=== PATIENT | female | born 1990 | race Caucasian/White ===

== ENCOUNTER 2017-12-02 23:53 | Emergency (ER) | payer BC ==
[2017-12-03] MEDS ORDERED: SODIUM CHLORIDE 0.9% 1,000 ML IV ONE (00:27)
[2017-12-03] MEDS ORDERED: METOCLOPRAMIDE 5 MG/ML 2 ML VIAL IVP STA (00:27)
[2017-12-03] MEDS ORDERED: SODIUM CHLORIDE 0.9% 500 ML IV ONE (00:27)
[2017-12-03] MEDS ORDERED: diphenhydrAMINE 50 MG/ML 1 ML VIAL IVP STA (00:27)
--- NOTE | 2017-12-03 00:30 | ED ---
Nausea/Vomiting/Diarrhea HPI - General Chief complaint: Nausea/Vomiting/Diarrhea Stated complaint: 7wks Preg-Vomiting Time Seen by Provider: 12/03/17 00:18 Source: patient Mode of arrival: wheelchair Limitations: no limitations - History of Present Illness Initial comments: 27-year-old female patient presents to the emergency department today for evaluation of vomiting and lower abdominal cramping. Patient states she believes she is approximately 7 weeks . She is . History of polycystic ovarian syndrome. She states that she did have her initial intake appointment with her RESOURCE ANALYST but has not had any ultrasound or physician evaluation. She states that for the last 4 days she has been vomiting consistently throughout the day. States that she has only been able to keep down small amounts of toast and crackers. States that she is able to drink at times. She states she has had one to 2 episodes of loose stools for the last 4 days as well. She denies any hematemesis, hematochezia, or melena. She denies any fevers or chills with this. Denies any recent travel. Patient denies any recent rash, shortness breath, chest pain, back pain, numbness, tingling, dizziness, weakness, hematuria, dysuria, urinary urgency, urinary frequency, headache, visual changes, or any other complaints. - Related Data Home Medications Medication Instructions Recorded Confirmed Dextroamphetamine/Amphetamine 30 mg PO BID 08/03/17 08/03/17 [Adderall] buPROPion HCL [Wellbutrin SR] 150 mg PO BID 08/03/17 08/03/17 Minocycline [Minocin] 50 mg PO BID 08/09/17 08/09/17 Allergies Allergy/AdvReac Type Severity Reaction Status Date / Time amoxicillin Allergy Anaphylaxis Verified 12/03/17 00:00 Penicillins Allergy Anaphylaxis Verified 12/03/17 00:00 Review of Systems ROS Statement: Those systems with pertinent positive or pertinent negative responses have been documented in the HPI. ROS Other: All systems not noted in ROS Statement are negative. Past Medical History Past Medical History: No Reported History History of Any Multi-Drug Resistant Organisms: None Reported Additional Past Surgical History / Comment(s): labiaplasty Past Psychological History: No Psychological Hx Reported Smoking Status: Never smoker Past Alcohol Use History: None Reported Past Drug Use History: Marijuana General Exam Limitations: no limitations General appearance: alert, in no apparent distress, other (His is a well- developed, well-nourished adult female patient in no acute distress. Vital signs upon presentation are temperature 97.6F, pulse 78, respirations 18, blood pressure 122/75, pulse ox 100% on room air.) Eye exam: Present: normal appearance, PERRL, EOMI. Absent: scleral icterus, conjunctival injection, periorbital swelling ENT exam: Present: normal exam, normal oropharynx, mucous membranes moist Respiratory exam: Present: normal lung sounds bilaterally. Absent: respiratory distress, wheezes, rales, rhonchi, stridor Cardiovascular Exam: Present: regular rate, normal rhythm, normal heart sounds. Absent: systolic murmur, diastolic murmur, rubs, gallop, clicks GI/Abdominal exam: Present: soft, tenderness (Tenderness over the suprapubic region and over the left lower quadrant.), normal bowel sounds. Absent: distended, guarding, rebound, rigid Back exam: Present: normal inspection. Absent: CVA tenderness (R), CVA tenderness (L) Neurological exam: Present: alert, oriented X3, CN II-XII intact Psychiatric exam: Present: normal affect, normal mood Skin exam: Present: warm, dry, intact, normal color. Absent: rash Course Vital Signs 12/02/17 23:55 Temperature 97.6 F Pulse Rate 78 Respiratory 18 Rate Blood Pressure 122/75 O2 Sat by Pulse 100 Oximetry Medical Decision Making - Medical Decision Making 27-year-old female patient presented to the emergency department today for evaluation of nausea and vomiting for the last 4 days, as well as lower abdominal cramping. Physical examination did reveal some suprapubic and left lower quadrant abdominal tenderness. Labs reviewed and were unremarkable, hCG was 56,000. Urinalysis was negative for any acute process. Ultrasound was obtained and did show a single viable intrauterine measuring 6 weeks 3 days with a heart rate of 167. I did give her Reglan and Benadryl as well as IV fluids here in the department. Patient is feeling better. We'll discharge her home at this time to follow-up with her RESOURCE ANALYST for further evaluation. She is instructed to return here immediately for any new, worsening, or concerning symptoms. She verbalizes understanding and agrees with this plan. - Lab Data Result diagrams: 12/03/17 00:46 12/03/17 00:46 Lab Results 12/03/17 12/03/17 12/03/17 Range/Units 00:43 00:46 00:46 WBC 12.2 H (3.8-10.6) k/uL RBC 4.11 (3.80-5.40) m/uL Hgb 12.2 (11.4-16.0) gm/dL Hct 37.9 (34.0-46.0) % MCV 92.2 (80.0-100.0) fL MCH 29.6 (25.0-35.0) pg MCHC 32.1 (31.0-37.0) g/dL RDW 12.1 (11.5-15.5) % Plt Count 260 (150-450) k/uL Neutrophils % 64 % Lymphocytes % 27 % Monocytes % 4 % Eosinophils % 2 % Basophils % 1 % Neutrophils # 7.8 H (1.3-7.7) k/uL Lymphocytes # 3.3 (1.0-4.8) k/uL Monocytes # 0.5 (0-1.0) k/uL Eosinophils # 0.3 (0-0.7) k/uL Basophils # 0.1 (0-0.2) k/uL Sodium 137 (137-145) mmol/L Potassium 3.9 (3.5-5.1) mmol/L Chloride 100 (98-107) mmol/L Carbon Dioxide 26 (22-30) mmol/L Anion Gap 11 mmol/L BUN 10 (7-17) mg/dL Creatinine 0.50 L (0.52-1.04) mg/dL Est GFR (MDRD) Af Amer >60 (>60 ml/min/1.73 sqM) Est GFR (MDRD) Non-Af >60 (>60 ml/min/1.73 sqM) Glucose 93 (74-99) mg/dL Calcium 9.7 (8.4-10.2) mg/dL Total Bilirubin 0.2 (0.2-1.3) mg/dL AST 18 (14-36) U/L ALT 24 (9-52) U/L Alkaline Phosphatase 62 (38-126) U/L Total Protein 6.8 (6.3-8.2) g/dL Albumin 4.0 (3.5-5.0) g/dL Amylase 56 (30-110) U/L Lipase 47 (23-300) U/L HCG, Quant 58231.7 mIU/mL Urine Color Colorless Urine Appearance Clear (Clear) Urine pH 6.5 (5.0-8.0) Ur Specific [place] 1.001 (1.001-1.035) Urine Protein Negative (Negative) Urine Glucose (UA) Negative (Negative) Urine Ketones Negative (Negative) Urine Blood Negative (Negative) Urine Nitrite Negative (Negative) Urine Bilirubin Negative (Negative) Urine Urobilinogen <2.0 (<2.0) mg/dL Ur Leukocyte Esterase Negative (Negative) - Radiology Data Radiology results: report reviewed, image reviewed ultrasound was obtained, report was reviewed in its entirety. Impression by Dr. Barboza shows viable intrauterine measuring 6 weeks 3 days. Heart rate is 167. He sees no complicating process. Disposition Clinical Impression: Nausea & vomiting Disposition: HOME SELF-CARE Condition: Good Instructions: Acute Nausea and Vomiting (ED) Additional Instructions: Eat small frequent meals. Follow-up with your OBGYN for further evaluation. Return here immediately for any new, worsening, or concerning symptoms. Referrals: None,Stated [Primary Care Provider] - 1-2 days Time of Disposition: 02:08
[2017-12-03 00:56] LABS: Basophils # (A) 0.1 k/uL (0-0.2); Basophils % (A) 1 %; Eosinophils # (A) 0.3 k/uL (0-0.7); Eosinophils % (A) 2 %; HCT 37.9 % (34.0-46.0); HGB 12.2 gm/dL (11.4-16.0); Lymphocytes # (A) 3.3 k/uL (1.0-4.8); Lymphocytes % (A) 27 %; MCH 29.6 pg (25.0-35.0); MCHC 32.1 g/dL (31.0-37.0); MCV 92.2 fL (80.0-100.0); Mean Platelet Volume 8.3; Monocytes # (A) 0.5 k/uL (0-1.0); Monocytes % (A) 4 %; Neutrophils # (A) 7.8 k/uL (1.3-7.7); Neutrophils % (A) 64 %; Platelet Count 260 k/uL (150-450); RBC 4.11 m/uL (3.80-5.40); RDW 12.1 % (11.5-15.5); WBC 12.2 k/uL (3.8-10.6)
[2017-12-03 00:57] LABS: Appearance,Urine Clear (Clear); Bilirubin,Urine Negative (Negative); Blood,Urine Negative (Negative); Color,Urine Colorless; Glucose,Urine (UA) Negative (Negative); Ketones,Urine Negative (Negative); Leukocyte Esterase,Urine Negative (Negative); Nitrite,Urine Negative (Negative); PH, Urine 6.5 (5.0-8.0); Protein,Urine Negative (Negative); Specific Gravity,Urine 1.001 (1.001-1.035); Urobilinogen,Urine <2.0 mg/dL (<2.0)
[2017-12-03 01:08] LABS: ALT 24 U/L (9-52); AST 18 U/L (14-36); Alkaline Phosphatase 62 U/L (38-126); Amylase 56 U/L (30-110); Anion Gap 11 mmol/L; Blood Urea Nitrogen 10 mg/dL (7-17); Calcium 9.7 mg/dL (8.4-10.2); Carbon Dioxide 26 mmol/L (22-30); Chloride 100 mmol/L (98-107); Glucose 93 mg/dL (74-99); Lipase 47 U/L (23-300); Potassium 3.9 mmol/L (3.5-5.1); Sodium 137 mmol/L (137-145); Total Bilirubin 0.2 mg/dL (0.2-1.3); Total Protein 6.8 g/dL (6.3-8.2)
--- NOTE | 2017-12-03 01:37 | US ---
EXAMINATION TYPE: US OB <= 14 wk fetus DATE OF EXAM: 12/03/2017 COMPARISON: NONE CLINICAL HISTORY: Pain. Pain and nausea. EXAM PERFORMED: Transvaginal (TV) and Transabdominal (TA) EXAM MEASUREMENTS: GESTATIONAL AGE / DATING Physician Established: Not yet established Dates by LMP: (7 weeks/4 days) EDC: 07/18/2018 Dates by First Scan: No previous this is first scan Dates by Current Scan for: (6 weeks/3 days) EDC: 07/26/2018 MATERNAL ANATOMY Uterus: 9.0 x 4.9 x 6.4 cm Right Ovary: 2.6 x 1.7 x 2.9 cm Left Ovary: 3.5 x 1.1 x 3.3 cm Post CDS / Adnexa: wnl Presence of free fluid: no Presence of corpus luteal cyst: yes Presence of subchorionic bleed: no GESTATION / SURVEY CRL: 0.6 cm (6 weeks/3 days) Yolk Sac (normal less than 6mm): 2mm Heart Rate: 167 bpm Rhythm: Normal IUP: Viable IUP Date of LMP: 10/11/2017 Beta HcG (if available): Not available at this time Viable IUP 6w3d GUICHO 07/26/2018 HR 167 BPM IMPRESSION: The ultrasound gestational age is 6 weeks 3 days. I see no complicating process.
[2017-12-03 01:51] LABS: HCG,Quantitative Serum 59858.7 mIU/mL
[2017-12-03 02:21] VITALS: BP 112/56; PULSE 70; RESP 16; TEMP 98.8
== END 2017-12-03 02:21 | disposition home or self-care (01) ==
LOC: EC 23:53
DX: O21.0 Mild hyperemesis gravidarum (principal); O99.89 Other specified diseases and conditions complicating pregnancy, childbirth and the puerperium; R19.7 Diarrhea, unspecified; Z3A.01 Less than 8 weeks gestation of pregnancy; Z79.899 Other long term (current) drug therapy; Z88.0 Allergy status to penicillin
CPT/HCPCS: 36415; 80053; 82150; 83690; 85025; 81003; 84702; 76801; 99284; 96374; 96375; 96361 ×2; J1200; J2765; 76817

== ENCOUNTER → 2017-12-27 | Outpatient (CLI) | payer BC ==
--- NOTE | 2017-12-27 11:40 | US ---
EXAMINATION TYPE: US OB <=14 wks transvag DATE OF EXAM: 12/27/2017 COMPARISON: 12/06/2017 CLINICAL HISTORY: O76 Absent Heart Tones. EXAM PERFORMED: Transvaginal (TV) and Transabdominal (TA) Transvaginal added to better visualize ovaries and yolk sac. EXAM MEASUREMENTS: GESTATIONAL AGE / DATING Physician Established: (9 weeks/6 days) EDC: 07/26/18 Dates by LMP: (11 weeks 0 days) 07/18/18 Dates by First Scan: (9 weeks/6 days) EDC: 07/26/18 Dates by Current Scan for: (10 weeks/5 days) EDC: 07/20/18 MATERNAL ANATOMY Uterus: 9.2 x x 6.6 x 10. 0cm Right Ovary: obscured by bowel gas and enlarging uterus Left Ovary: obscured by bowel gas and enlarging uterus Post CDS / Adnexa: wnl Presence of free fluid: no GESTATION / SURVEY CRL: 3.8 (10 weeks/5 days) Yolk Sac (normal less than 6mm): 3mm Heart Rate: 160 bpm Rhythm: Normal IUP: Live IUP Date of LMP: 10/11/17 Beta HcG (if available): Not available at this time IMPRESSION: Single live intrauterine with heart rate of 160 bpm and calculated sonographic age of 10 we eks and 5 days with estimated date of delivery of 07/20/2018, overall concordant with menstrual age.
== END | disposition home or self-care (01) ==
LOC: RADUSWWP 10:05
PROVIDERS: ATTEND Obstetrics & Gynecology Obstetrics
DX: O76 Abnormality in fetal heart rate and rhythm complicating labor and delivery (principal); Z3A.10 10 weeks gestation of pregnancy
CPT/HCPCS: 76801; 76817

== ENCOUNTER 2018-04-09 21:56 | Outpatient (CLI) | payer BC ==
[2018-04-10 01:06] VITALS: BP 126/78; PULSE 70; RESP 18; TEMP 98.2
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
== END 2018-04-10 01:03 | disposition home or self-care (01) ==
LOC: FBPOP 21:56
PROVIDERS: ATTEND Obstetrics & Gynecology
DX: O99.89 Other specified diseases and conditions complicating pregnancy, childbirth and the puerperium (principal); G89.11 Acute pain due to trauma; Z3A.24 24 weeks gestation of pregnancy
CPT/HCPCS: 99213

== ENCOUNTER 2018-07-19 08:28 | Inpatient (IN) | payer BC ==
[2018-07-19 10:16] LABS: Amorphous Sediment,Urine Few /hpf; Appearance,Urine Cloudy (Clear); Bilirubin,Urine Negative (Negative); Blood,Urine Negative (Negative); Calcium Oxalate Crystals,Urine Few /hpf; Color,Urine Yellow; Glucose,Urine (UA) Negative (Negative); Ketones,Urine Trace (Negative); Leukocyte Esterase,Urine Negative (Negative); Mucus,Urine Rare /hpf; Nitrite,Urine Negative (Negative); PH, Urine 6.5 (5.0-8.0); Protein,Urine Trace (Negative); Specific Gravity,Urine 1.015 (1.001-1.035); Squamous Epithelial Cell,Urine 1 /hpf (0-4); Urobilinogen,Urine <2.0 mg/dL (<2.0); WBC,Urine <1 /hpf (0-5)
[2018-07-19 10:30] LABS: ALT 26 U/L (9-52); AST 53 U/L (14-36); Blood Urea Nitrogen 8 mg/dL (7-17); LDH 779 U/L (313-618); Uric Acid 5.6 mg/dL (3.7-7.4)
[2018-07-19 10:31] LABS: Basophils # (A) 0.1 k/uL (0-0.2); Basophils % (A) 0 %; Eosinophils # (A) 0.2 k/uL (0-0.7); Eosinophils % (A) 1 %; HGB 11.6 gm/dL (11.4-16.0); Lymphocytes % (A) 18 %; MCH 28.9 pg (25.0-35.0); MCHC 33.2 g/dL (31.0-37.0); MCV 87.2 fL (80.0-100.0); Monocytes # (A) 0.8 k/uL (0-1.0); Monocytes % (A) 5 %; Neutrophils # (A) 12.6 k/uL (1.3-7.7); Neutrophils % (A) 75 %; Platelet Count 262 k/uL (150-450); RBC 4.01 m/uL (3.80-5.40); RDW 14.5 % (11.5-15.5); WBC 16.8 k/uL (3.8-10.6)
[2018-07-19] MEDS ORDERED: LIDOCAINE 0.5% (PF) 5 MG/ML (50 ML SDV) SQ PRN (10:47)
[2018-07-19] MEDS ORDERED: METHYLERGONOVINE 0.2 MG/ML 1 ML AMP IM PRN (10:47)
[2018-07-19] MEDS ORDERED: TERBUTALINE 1 MG/ML VIAL SQ PRN (10:47)
[2018-07-19] MEDS ORDERED: OXYTOCIN 10 UNIT/ML 1 ML VIAL IM PRN (10:47)
[2018-07-19] MEDS ORDERED: CARBOPROST TROMETHAMINE 250 MCG/ML 1 ML AMP IM PRN (10:47)
[2018-07-19] MEDS ORDERED: OXYTOCIN 20 UNITS/1000 ML NS 1,000 ML IV SCH (11:00)
[2018-07-19] MEDS: LACTATED RINGERS 1,000 ML IV SCH ×2 (11:14→14:18)
[2018-07-19 11:36] VITALS: BMI 32.9
[2018-07-19] MEDS ORDERED: ROPIVACAINE 100 MG, fentaNYL (PF) 200 MCG in SODIUM CHLORIDE 0.9% 76 ML EPIDURAL ONE (14:25)
[2018-07-19] MEDS ORDERED: CLINDAMYCIN 900 MG in DEXTROSE 5% IN WATER 50 ML IVPB SCH ×2 (18:49)
[2018-07-19] MEDS ORDERED: diphenhydrAMINE 25 MG CAP PO PRN (19:24)
[2018-07-19] MEDS ORDERED: ZOLPIDEM 5 MG TAB PO PRN (19:24)
[2018-07-19] MEDS ORDERED: HYDROCORTISONE 2.5% RECTAL CREAM 30 GM TUBE RECTAL PRN (19:24)
[2018-07-19] MEDS ORDERED: WITCH HAZEL 1 EACH MED..PAD TOPICAL PRN (19:24)
[2018-07-19] MEDS ORDERED: diphenhydrAMINE 50 MG CAP PO PRN (19:24)
[2018-07-19] MEDS ORDERED: diphenhydrAMINE 50 MG/ML 1 ML VIAL IVP PRN ×2 (19:24)
[2018-07-19] MEDS ORDERED: BENZOCAINE/MENTHOL SPRAY 1 GM/SPRAY AEROSOL TOPICAL PRN (19:24)
[2018-07-19] MEDS ORDERED: ACETAMINOPHEN TAB 325 MG TAB PO PRN (19:24)
[2018-07-19] MEDS ORDERED: LANOLIN CREAM 5 GM TUBE TOPICAL PRN (19:24)
[2018-07-19] MEDS ORDERED: SIMETHICONE 80 MG CHEWABLE PO PRN (19:24)
--- NOTE | 2018-07-19 19:24 | P.PROBDLV ---
Vaginal Delivery Note - . Vaginal Delivery Note: This is a 27-year-old white female 1 para 0 EDC 07/26/2018 at 39 weeks gestation. Patient presented to the triage area for rule out ruptured membranes. Membranes were not ruptured. However, several elevated blood pressures were noted. For this reason, additional blood work was performed and this was positive for elevated liver enzymes. Decision was made to admit patient and proceed with delivery. Please see admitting H&P for details. is remarkable for blood type O+, group B strep cultures positive, rubella status nonimmune. Artificial amniorrhexis revealed clear fluid. Oxytocin was started and titrated. Epidural was placed per her request. heart tones at times revealed decelerations, and therefore only a low dose amount of Pitocin was tolerated. However, patient became completely dilated at 1841 hrs. Perineal body was prepped and draped in usual sterile fashion. With excellent maternal expulsive efforts the 's head delivered occiput anterior and restituted accordingly. There was no nuchal cord noted. The right or anterior shoulder was gently delivered from underneath the pubic symphysis at which time the oropharynx, nasopharynx, and external nares were carefully bulb suctioned. Patient was officially delivered of a liveborn female infant at 1859 hrs. Umbilical cord was doubly clamped and ligated, she was handed to waiting nurses for evaluation where scores of 9 and 9 at one and 5 minutes respectively are given. weighs 7 lbs. 12 oz. or 3515 g. At this time the uterus is massaged. Placenta is delivered spontaneously, it is inspected and noted to be intact with trivascular cord at 1902 hrs. It is sent to pathology for history of elevated liver enzymes and maternal blood pressure. Uterus is massaged. Inspection of the cervix, vagina, perineum, periurethral, and perirectal areas reveals a small first-degree midline perineal laceration. This was injected with 1% lidocaine and repaired in the usual fashion using 3-0 Vicryl suture for excellent reapproximation. Fundus is firm and in the midline, symmetric and 18 week size upon completion of delivery. All sponge needle and enhancement counts are correct at the end of our procedure. Blood pressure will be monitored carefully through the evening.
[2018-07-19 21:09] VITALS: RESP 16
[2018-07-19] MEDS: SENNOSIDES-DOCUSATE SODIUM 1 EACH TAB PO SCH (21:26)
[2018-07-19] MEDS: HYDROCORTISONE SUPPOSITORY 25 MG SUPP RECTAL SCH (21:26)
[2018-07-20] MEDS: IBUPROFEN 600 MG TAB PO PRN ×3 (03:41→20:14)
[2018-07-20 05:53] LABS: Basophils % (A) 0 %; Eosinophils # (A) 0.1 k/uL (0-0.7); Eosinophils % (A) 1 %; HCT 27.8 % (34.0-46.0); Lymphocytes # (A) 2.3 k/uL (1.0-4.8); Lymphocytes % (A) 14 %; MCH 29.4 pg (25.0-35.0); MCHC 33.4 g/dL (31.0-37.0); MCV 88.1 fL (80.0-100.0); Mean Platelet Volume 10.3; Monocytes # (A) 0.7 k/uL (0-1.0); Monocytes % (A) 4 %; Neutrophils % (A) 80 %; Platelet Count 186 k/uL (150-450); RBC 3.16 m/uL (3.80-5.40); RDW 14.5 % (11.5-15.5); WBC 16.3 k/uL (3.8-10.6)
[2018-07-20 05:56] LABS: HGB 9.3 gm/dL (11.4-16.0)
[2018-07-20] MEDS: HYDROCORTISONE SUPPOSITORY 25 MG SUPP RECTAL SCH ×2 (08:12→22:25)
[2018-07-20] MEDS: SENNOSIDES-DOCUSATE SODIUM 1 EACH TAB PO SCH ×2 (08:12→22:25)
--- NOTE | 2018-07-20 08:25 | P.HPOB ---
History of Present Illness H&P Date: 07/19/18 Chief Complaint: IUP @ 39 0/7 weeks, gestational HTN This is a 27yo at 39 0/7 weeks that presents with c/o painful ctx, on initial vital signs BP was noted to be elevated. Pre eclampsia labs were drawn and ALT elevated at 53. otherwise nml labs appreciated. she is noting the ctx to be more painful and she is tearful at times with them. no LOF, VB she has been receiving PN care with myself and BP in the office have all been normal. She denies [place] visual changes or abdominal pain not associated with a contraction or FM. 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, PCOS History of Any Multi-Drug Resistant Organisms: None Reported Additional Past Surgical History / Comment(s): labiaplasty 2018, feet surgery 2014, Past Anesthesia/Blood Transfusion Reactions: No Reported Reaction Past Psychological History: No Psychological Hx Reported Smoking Status: Former smoker Past Alcohol Use History: None Reported Past Drug Use History: Marijuana Additional Drug Use History / Comment(s): marijuana, adderall and alcohol use prior to pregancy - Past Family History Mother Additional Family Medical History / Comment(s): cervical cancer Medications and Allergies Home Medications Medication Instructions Recorded Confirmed Type Pnv No.95/Ferrous Fum/Folic AC 1 tab PO DAILY 04/09/18 07/19/18 History [ Multivitamin Tablet] valACYclovir HCL [Valtrex] 1 tab PO DAILY 07/19/18 07/19/18 History Allergies Allergy/AdvReac Type Severity Reaction Status Date / Time amoxicillin Allergy Anaphylaxis Verified 07/19/18 08:38 Penicillins Allergy Anaphylaxis Verified 07/19/18 08:38 Exam Osteopathic Statement: *. No significant issues noted on an osteopathic structural exam other than those noted in the History and Physical/Consult. Vital Signs Temp Pulse Resp BP Pulse Ox 07/19/18 09:30 97.2 F L 121 H 16 139/88 98 Intake and Output 07/18/18 07/19/18 07/19/18 22:59 06:59 14:59 Other: Weight 84.368 kg - OBG Physical Exam Abdomen: gravid and appropriate for GA Vagina: normal moisture Cervix: 2/80/-2 amniotomy is preformed with clear fluid obtained, vertex presentation Uterus: enlarged Anus/Rectum: hemorrhoids Results Result Diagrams: 07/20/18 05:39 07/19/18 09:47 Abnormal Lab Results - Last 24 Hours (Table) 07/19/18 07/19/18 07/19/18 Range/Units 09:47 09:47 09:47 WBC 16.8 H (3.8-10.6) k/uL Neutrophils # 12.6 H (1.3-7.7) k/uL AST 53 H (14-36) U/L Lactate Dehydrogenase 779 H (313-618) U/L Urine Appearance Cloudy H (Clear) Urine Protein Trace H (Negative) Urine Ketones Trace H (Negative) Calcium Oxalate Crystal Few H (None) /hpf Amorphous Sediment Few H (None) /hpf Urine Mucus Rare H (None) /hpf Assessment and Plan (1) Term Current Visit: Yes Status: Acute Code(s): Z34.80 - ENCOUNTER FOR SUPRVSN OF NORMAL , UNSP TRIMESTER SNOMED Code(s): 70133068 (2) Positive GBS test Current Visit: Yes Status: Acute Code(s): B95.1 - STREPTOCOCCUS, GROUP B, CAUSING DISEASES [facility]SD [facility] SNOMED Code(s): 4797090774911 (3) Gestational HTN Current Visit: Yes Status: Acute Code(s): O13.9 - GESTATIONAL HTN W/O SIGNIFICANT PROTEINURIA, UNSP TRIMESTER SNOMED Code(s): 539746027 Plan: will admit to L and D for induction of labor. IV antibiotics for GBS prophylaxis. questions answered and pt states understanding of plan.
--- NOTE | 2018-07-20 08:31 | P.DS ---
Providers Date of admission: 07/19/18 10:48 Expected date of discharge: 07/20/18 Attending physician: Celia Cat Primary care physician: Stated None - Discharge Diagnosis(es) (1) Term Current Visit: Yes Status: Acute (2) Positive GBS test Current Visit: Yes Status: Acute (3) Gestational HTN Current Visit: Yes Status: Acute Hospital Course: This is a 27-year-old 1 para 0 with an estimated due date of 07/26/2018 at 39-0/7 weeks. Patient presented to labor and delivery yesterday with complaints of rupture of membranes. She was not ruptured with elevated blood pressures were noted and patient was admitted for gestational hypertension and Pitocin induction of labor was begun. Patient progressed through labor amniotomy was performed and clear fluid was obtained. Patient eventually got an epidural per her request from anesthesia. Patient progressed to complete began pushing and had a normal spontaneous vaginal delivery of a viable female weighing 7 lbs. 12 oz. with Apgars of 9 and 9 at 1859. Patient did sustain a first-degree midline perineal laceration was was repaired in the usual fashion with 3-0 Vicryl. Patient's course has been uneventful. She is a billing and voiding without difficulty. She is breast-feeding and requests a pump prior to discharge. She states her pain is well-controlled with Motrin/ibuprofen at this time. At this time she would like discharge at 24 hours. Patient Condition at Discharge: Good Plan - Discharge Summary New Discharge Prescriptions: No Action Pnv No.95/Ferrous Fum/Folic AC [ Multivitamin Tablet] 1 tab PO DAILY valACYclovir HCL [Valtrex] 1 tab PO DAILY Discharge Medication List Pnv No.95/Ferrous Fum/Folic AC [ Multivitamin Tablet] 1 tab PO DAILY [History] valACYclovir HCL [Valtrex] 1 tab PO DAILY 07/19/18 [History] Follow up Appointment(s)/Referral(s): Celia Cat DO [Doctor of Osteopathic Medicine] - 4 Weeks Patient Instructions/Handouts: Vaginal Delivery (DC), Vaginal Delivery (GEN) Activity/Diet/Wound Care/Special Instructions: No tub baths or intercourse until 6 weeks Discharge Disposition: HOME SELF-CARE
[2018-07-20] MEDS ORDERED: INFLUENZA VACCINE (6 MOS+) 60 MCG/0.5 ML SYRINGE IM ONE (08:57)
[2018-07-20] MEDS ORDERED: MEASLES-MUMPS-RUBELLA VACC/PF 12,500 UNIT/0.5 ML VIAL SQ ONE (09:01)
[2018-07-21] MEDS: SENNOSIDES-DOCUSATE SODIUM 1 EACH TAB PO SCH (07:36)
[2018-07-21] MEDS: IBUPROFEN 600 MG TAB PO PRN ×2 (07:47→13:17)
--- NOTE | 2018-07-21 08:27 | P.PNOBGVD ---
Subjective - Subjective Principal diagnosis: PPD 2 Interval history: Patient is doing well she is ambulating and voiding without difficulty. She is struggling with some breast-feeding issues but is now pumping. She denies concerns and states her pain is well-controlled. Lochia is moderate at this time. She wishes discharge home today. Patient reports: Reports appetite normal, Reports voiding normally, Reports pain well controlled, Reports ambulating normally : doing well Objective - Latest Vital Signs Latest vital signs: Vital Signs Temp Pulse Resp BP 07/21/18 00:00 98.2 F 91 16 136/83 07/20/18 16:00 98.7 F 74 16 129/76 - Exam Lungs: bilateral: normal Extremities: Present: normal, edema Abdomen: Present: normal appearance, soft Uterus: Present: firm Assessment and Plan (1) Term Current Visit: Yes Status: Acute Code(s): Z34.80 - ENCOUNTER FOR SUPRVSN OF NORMAL , UNSP TRIMESTER SNOMED Code(s): 35371257 (2) Positive GBS test Current Visit: Yes Status: Acute Code(s): B95.1 - STREPTOCOCCUS, GROUP B, CAUSING DISEASES CLASSD [facility] SNOMED Code(s): 6963244533563 (3) Gestational HTN Current Visit: Yes Status: Acute Code(s): O13.9 - GESTATIONAL HTN W/O SIGNIFICANT PROTEINURIA, UNSP TRIMESTER SNOMED Code(s): 871199434 (4) Status post normal vaginal delivery Current Visit: Yes Status: Acute Code(s): VWF8459 - SNOMED Code(s): 179344404 Plan: We'll plan discharge home this morning. [id number] Motrin/ibuprofen as needed for pain. Patient is to follow-up in 4 weeks with myself.
[2018-07-21] MEDS: HYDROCORTISONE SUPPOSITORY 25 MG SUPP RECTAL SCH (11:58)
[2018-07-21 15:22] VITALS: BP 127/82; PULSE 84; TEMP 98.7
== END 2018-07-21 18:45 | disposition home or self-care (01) | DRG 807 ==
LOC: FBPOP 08:28 → 4FBP 10:48
PROVIDERS: ADMIT Obstetrics & Gynecology Obstetrics; ATTEND Obstetrics & Gynecology Obstetrics
PROC: 3E033VJ Introduction of Other Hormone into Peripheral Vein, Percutaneous Approach (ICD-10-PCS; principal; 2018-07-19)
PROC: 0HQ9XZZ Repair Perineum Skin, External Approach (ICD-10-PCS; principal; 2018-07-19)
PROC: 00HU33Z Insertion of Infusion Device into Spinal Canal, Percutaneous Approach (ICD-10-PCS; principal; 2018-07-19)
PROC: 10E0XZZ Delivery of Products of Conception, External Approach (ICD-10-PCS; principal; 2018-07-19)
PROC: 10907ZC Drainage of Amniotic Fluid, Therapeutic from Products of Conception, Via Natural or Artificial Opening (ICD-10-PCS; principal; 2018-07-19)
PROC: 3E0R3NZ Introduction of Analgesics, Hypnotics, Sedatives into Spinal Canal, Percutaneous Approach (ICD-10-PCS; principal; 2018-07-19)
DX: O13.4 Gestational [pregnancy-induced] hypertension without significant proteinuria, complicating childbirth (principal); Z37.0 Single live birth; O99.824 Streptococcus B carrier state complicating childbirth; Z3A.39 39 weeks gestation of pregnancy; O70.0 First degree perineal laceration during delivery; Z80.49 Family history of malignant neoplasm of other genital organs; Z87.891 Personal history of nicotine dependence; O76 Abnormality in fetal heart rate and rhythm complicating labor and delivery
CPT/HCPCS: 81001; 82565; 83615; 84450; 84460; 84520; 84550; 85025; 86850; 86900; 86901; 88307; 90686; 90707; 99215

== ENCOUNTER 2021-12-03 21:40 | Emergency (ER) | payer BC, OTHER ==
[2021-12-03 22:03] VITALS: BP 133/81; PULSE 87; RESP 18; TEMP 98.4
[2021-12-04] MEDS ORDERED: ACETAMINOPHEN TAB 325 MG TAB PO STA (00:37)
[2021-12-04] MEDS ORDERED: LIDOCAINE 1% INJ 10MG/ML (20 ML MDV) SQ ONE (00:37)
--- NOTE | 2021-12-04 00:58 | ED ---
General Adult HPI - General Chief complaint: GI Bleed Stated complaint: Hemorrhoid Time Seen by Provider: 12/04/21 00:02 Source: patient Mode of arrival: ambulatory Limitations: no limitations - History of Present Illness Initial comments: This patient is a 31-year-old woman approximate 35 weeks who states that she is having severe hemorrhoid pain. She has had hemorrhoids with this and a previous one, in fact she had hemorrhoid surgery following a previous . She states that she started to have pain on Wednesday and it has worsened today. No bleeding. She has tried hydrocortisone foam, witch art with no relief. -: days(s) Radiation: non-radiation Quality: aching, other (Burning) Consistency: constant Improves with: none Worsens with: none Associated Symptoms: denies other symptoms - Related Data Home Medications Medication Instructions Recorded Confirmed Pnv No.95/Ferrous Fum/Folic AC 1 tab PO DAILY 04/09/18 07/19/18 [ Multivitamin Tablet] valACYclovir HCL [Valtrex] 1 tab PO DAILY 07/19/18 07/19/18 Previous Rx's Medication Instructions Recorded Dibucaine [Nupercainal] 1 applicate RECTAL TID PRN #28.4 gm 12/04/21 Allergies Allergy/AdvReac Type Severity Reaction Status Date / Time amoxicillin Allergy Anaphylaxis Verified 12/03/21 22:03 Penicillins Allergy Anaphylaxis Verified 12/03/21 22:03 Review of Systems ROS Statement: Those systems with pertinent positive or pertinent negative responses have been documented in the HPI. ROS Other: All systems not noted in ROS Statement are negative. 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 Absent: respiratory distress, wheezes, rales, rhonchi Cardiovascular Exam: Present: regular rate, normal rhythm, normal heart sounds. Absent: systolic murmur, diastolic murmur, rubs, gallop Rectal exam: Present: hemorrhoids Skin exam: Present: warm, dry, intact, normal color. Absent: rash Course Vital Signs 12/03/21 22:00 Temperature 98.4 F Pulse Rate 87 Respiratory 18 Rate Blood Pressure 133/81 O2 Sat by Pulse 98 Oximetry Procedures - Incision & Drainage Consent Obtained: verbal consent Indication: Thrombosed hemorrhoid Site: buttock Anesthetic Used: lidocaine 1% I&D Cleaning Method: Alcohol Wipe Scalpel Used: #11 Needle Aspiration Performed?: No Irrigation Performed?: No I&D Drainage Obtained: Other (Blood clot) Patient Tolerated Procedure: well, no complications Disposition Clinical Impression: Hemorrhoids during in third trimester Disposition: HOME SELF-CARE Condition: Good Instructions (If sedation given, give patient instructions): Hemorrhoids (ED) Prescriptions: Dibucaine [Nupercainal] 1 applicate RECTAL TID PRN #28.4 gm PRN Reason: Pain Is patient prescribed a controlled substance at d/c from ED?: No Referrals: Celia Cat S, DO [Primary Care Provider] - 1-2 days
== END 2021-12-04 02:31 | disposition home or self-care (01) ==
LOC: EC 21:40
DX: O22.43 Hemorrhoids in pregnancy, third trimester (principal); F12.90 Cannabis use, unspecified, uncomplicated; Z3A.00 Weeks of gestation of pregnancy not specified
CPT/HCPCS: 46083; 99283; J2001

== ENCOUNTER 2021-12-31 05:52 | Inpatient (IN) | payer BC, OTHER ==
[2021-12-31] MEDS ORDERED: CLINDAMYCIN 900 MG in DEXTROSE 5% IN WATER 50 ML IVPB STA ×2 (06:14)
[2021-12-31] MEDS ORDERED: LIDOCAINE 1% (PF) 10 MG/ML (30 ML SDV) SQ PRN (06:14)
[2021-12-31] MEDS ORDERED: CARBOPROST TROMETHAMINE 250 MCG/ML 1 ML AMP IM PRN (06:14)
[2021-12-31] MEDS ORDERED: OXYTOCIN 10 UNIT/ML 1 ML VIAL IM PRN (06:14)
[2021-12-31] MEDS ORDERED: TERBUTALINE 1 MG/ML VIAL SQ PRN (06:14)
[2021-12-31] MEDS ORDERED: METHYLERGONOVINE 0.2 MG/ML 1 ML AMP IM PRN (06:14)
[2021-12-31] MEDS: LACTATED RINGERS 1,000 ML IV SCH ×2 (06:43→12:00)
[2021-12-31] MEDS ORDERED: OXYTOCIN 30 UNITS/500 ML NS 30 UNIT in SALINE 1 500ML.BAG IV SCH ×2 (06:45→15:45)
[2021-12-31 06:48] LABS: Basophils # (A) 0.1 k/uL (0-0.2); Basophils % (A) 0 %; Eosinophils # (A) 0.3 k/uL (0-0.7); Eosinophils % (A) 3 %; HCT 35.1 % (34.0-46.0); HGB 11.7 gm/dL (11.4-16.0); Lymphocytes # (A) 2.6 k/uL (1.0-4.8); Lymphocytes % (A) 20 %; MCH 30.8 pg (25.0-35.0); MCHC 33.4 g/dL (31.0-37.0); MCV 92.2 fL (80.0-100.0); Monocytes # (A) 0.5 k/uL (0-1.0); Monocytes % (A) 4 %; Neutrophils # (A) 9.2 k/uL (1.3-7.7); Neutrophils % (A) 70 %; Platelet Count 234 k/uL (150-450); RBC 3.81 m/uL (3.80-5.40); WBC 13.1 k/uL (3.8-10.6)
[2021-12-31] MEDS ORDERED: ROPIVACAINE 100 MG, fentaNYL (PF). 200 MCG in SODIUM CHLORIDE 0.9% 76 ML EPIDURAL ONE (13:08)
[2021-12-31] MEDS ORDERED: CLINDAMYCIN 900 MG in DEXTROSE 5% IN WATER 50 ML IVPB SCH ×2 (14:00)
[2021-12-31] MEDS ORDERED: SIMETHICONE 80 MG CHEWABLE PO PRN (15:35)
[2021-12-31] MEDS ORDERED: HYDROCORTISONE 2.5% RECTAL CREAM 30 GM TUBE RECTAL PRN (15:35)
[2021-12-31] MEDS ORDERED: diphenhydrAMINE 25 MG CAP PO PRN (15:35)
[2021-12-31] MEDS ORDERED: ZOLPIDEM 5 MG TAB PO PRN (15:35)
[2021-12-31] MEDS ORDERED: BENZOCAINE/MENTHOL SPRAY 1 GM/SPRAY AEROSOL TOPICAL PRN (15:35)
[2021-12-31] MEDS ORDERED: diphenhydrAMINE 50 MG CAP PO PRN (15:35)
[2021-12-31] MEDS ORDERED: LANOLIN CREAM 5 GM TUBE TOPICAL PRN (15:35)
[2021-12-31] MEDS ORDERED: diphenhydrAMINE 50 MG/ML 1 ML VIAL IVP PRN ×2 (15:35)
--- NOTE | 2021-12-31 15:39 | P.PROBDLV ---
Vaginal Delivery Note - . Vaginal Delivery Note: This is a 31-year-old that presents to labor and delivery at 39 0/7 weeks for elective induction of labor. Patient has had significant hemorrhoids throughout the and did have one layer recently. Patient elected induction of labor. Patient was admitted to labor and delivery and Pitocin induction of labor was begun. Once regular contractions were appreciated amniotomy was performed and clear fluid was obtained. Patient progressed through labor eventually becoming uncomfortable and requesting epidural placement. Patient progressed through labor, eventually becoming complete. Patient was placed in the modified lithotomy's position upon of the head. With good maternal effort patient had delivery of the head followed by the anterior/posterior shoulder. A loose nuchal cord was appreciated and delivered through. The 's body was delivered and placed on the maternal abdomen. After two-minute delayed the umbilical cord was doubly clamped and cut. Cord blood was then taken. The placenta was then delivered spontaneously intact with a three-vessel cord being noted. On inspection the patient's vaginal vault a first-degree vaginal laceration was appreciated. This was repaired with 3-0 Rapide with a [id number] suture. Hemostasis appreciated after repair. On inspection the patient's vaginal vault no further lacerations were appreciated. The uterus was noted to be firm and below the umbilicus. Estimated blood loss 100 mL. Patient tolerated delivery well and are resting comfortably. All counts were correct 2 at the end of the delivery.
--- NOTE | 2021-12-31 15:42 | P.HPOB ---
History of Present Illness H&P Date: 12/31/21 Chief Complaint: IUP @ 39 weeks 31 yo at 39 0/7 weeks, estimated due date of 01/07. Patient presents for elective induction of labor. Patient struggled with hemorrhoids since her last delivery. Patient underwent hemorrhoidectomy after her last vaginal delivery. During this she noted increasing discomfort and swelling of her hemorrhoids, patient was seen and hemorrhoid was lanced. Patient did have a positive covid infection in September 2021. Patient then desired elective induction at 39 weeks. Patient has had routine care otherwise. Anna ent does have a history of HSV, and is a vape user. 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, PCOS History of Any Multi-Drug Resistant Organisms: None Reported Additional Past Surgical History / Comment(s): labiaplasty 2017, feet surgery 2014, hemorhoid surgery 04/01 Past Anesthesia/Blood Transfusion Reactions: No Reported Reaction Past Psychological History: No Psychological Hx Reported Smoking Status: Current every day smoker Past Alcohol Use History: None Reported Past Drug Use History: Marijuana Additional Drug Use History / Comment(s): marijuana, adderall and alcohol use prior to pregancy - Past Family History Mother Additional Family Medical History / Comment(s): cervical cancer Medications and Allergies Home Medications Medication Instructions Recorded Confirmed Type Pnv No.95/Ferrous Fum/Folic AC 1 tab PO DAILY 04/09/18 12/31/21 History [ Multivitamin Tablet] valACYclovir HCL [Valtrex] 1 tab PO DAILY 07/19/18 12/31/21 History Dibucaine [Nupercainal] 1 applicate RECTAL TID PRN #28.4 gm 12/04/21 12/31/21 Rx Allergies Allergy/AdvReac Type Severity Reaction Status Date / Time amoxicillin Allergy Anaphylaxis Verified 12/31/21 06:12 Penicillins Allergy Anaphylaxis Verified 12/31/21 06:12 Exam Osteopathic Statement: *. No significant issues noted on an osteopathic structural exam other than those noted in the History and Physical/Consult. Vital Signs Temp Pulse Resp BP Pulse Ox 12/31/21 06:11 97.9 F 92 16 131/80 98 Intake and Output 12/30/21 12/31/21 12/31/21 22:59 06:59 14:59 Other: Weight 79.379 kg Targeted physical exam is performed and [facility] well-nourished well-developed female in no acute distress, breathing is nonlabored, heart has regular rate and rhythm, abdomen is gravid and appropriate for gestational age, heart tones are noted to be category 1 and she is dandre irregularly. On cervical exam she is 2/50/-2 station, amniotomy is performed and clear flui d was obtained. Results Result Diagrams: 12/31/21 06:40 Abnormal Lab Results - Last 24 Hours (Table) 12/31/21 Range/Units 06:40 WBC 13.1 H (3.8-10.6) k/uL Neutrophils # 9.2 H (1.3-7.7) k/uL Assessment and Plan (1) Hemorrhoids during in third trimester Current Visit: No Status: Acute Code(s): O22.43 - HEMORRHOIDS IN , THIRD TRIMESTER SNOMED Code(s): 137534918 (2) Positive GBS test Current Visit: No Status: Acute Code(s): B95.1 - STREPTOCOCCUS, GROUP B, CAU SING DISEASES [facility] SN[facility] Code(s): 853717132 (3) Term Current Visit: No Status: Acute Code(s): Z34.80 - ENCOUNTER FOR SUPRVSN OF NORMAL , UNSP TRIMESTER SNOMED Code(s): 37207934 Plan: 31-year-old at 39 0/7 weeks presents for induction of labor. Pitocin induction of labor was begun progressed to protocol. Options for analgesia are discussed including Stadol and epidural. Patient states understanding and will consider. Anticipate spontaneous vaginal delivery later today.
[2021-12-31] MEDS ORDERED: IBUPROFEN ORAL SUSP 100 MG/5 ML CUP PO PRN (18:00)
[2021-12-31] MEDS: IBUPROFEN 600 MG TAB PO SCH ×2 (18:16→22:55)
[2021-12-31] MEDS: SENNOSIDES-DOCUSATE SODIUM 1 EACH TAB PO SCH (19:46)
[2022-01-01] MEDS: IBUPROFEN 600 MG TAB PO SCH ×2 (00:41→04:50)
[2022-01-01 04:16] VITALS: RESP 16
[2022-01-01] MEDS: SENNOSIDES-DOCUSATE SODIUM 1 EACH TAB PO SCH (08:29)
--- NOTE | 2022-01-01 12:37 | P.DS ---
Providers Date of admission: 12/31/21 05:52 Expected date of discharge: 01/01/22 Attending physician: Celia Cat Primary care physician: Stated None - Discharge Diagnosis(es) (1) Hemorrhoids during in third trimester Current Visit: No Status: Acute (2) Positive GBS test Current Visit: No Status: Acute (3) Term Current Visit: No Status: Acute (4) Status post normal vaginal delivery Current Visit: No Status: Acute Hospital Course: This is a 31-year-old 2 para 1001 that presented to labor and delivery at 39-0/7 weeks for elective induction of labor. Patient had an uncomplicated , and received routine care. Patient did struggle with hemorrhoids after her last delivery she had a hemorrhoidectomy, during the third trimester she had a hemorrhoid lanced in the emergency department. Patient elected induction of labor secondary to this. Patient was admitted to labor and delivery and Pitocin induction of labor was begun per hospital protocol. Patient underwent amniotomy and clear fluid was obtained. Patient progressed through labor eventually becoming uncomfortable and requesting epidural placement. Patient progressed to complete began pushing and had a normal spontaneous vaginal delivery of a viable male , weight of 8 lbs. 2 oz., she did sustain a first-degree vaginal laceration during delivery. A [id number] suture was used to obtain hemostasis of the laceration. Patient's course has been uneventful. On this day #1 she is ambulating and voiding without difficulty. She is tolerating a regular diet without nausea or vomiting. She states her pain is well-controlled. She does desire discharge home at 24 hours. Patient Condition at Discharge: Good Plan - Discharge Summary Discharge Rx Participant: No New Discharge Prescriptions: No Action Pnv No.95/Ferrous Fum/Folic AC [ Multivitamin Tablet] 1 tab PO DAILY valACYclovir HCL [Valtrex] 1 tab PO DAILY Dibucaine [Nupercainal] 1 applicate RECTAL TID PRN #28.4 gm PRN Reason: Pain Discharge Medication List Pnv No.95/Ferrous Fum/Folic AC [ Multivitamin Tablet] 1 tab PO DAILY 04/09/18 [History] valACYclovir HCL [Valtrex] 1 tab PO DAILY 07/19/18 [History] Dibucaine [Nupercainal] 1 applicate RECTAL TID PRN #28.4 gm 12/04/21 [Rx] Follow up Appointment(s)/Referral(s): Celia Cat DO [Doctor of Osteopathic Medicine] - 4 Weeks Patient Instructions/Handouts: Vaginal Delivery (GEN), Vaginal Delivery (DC)
[2022-01-01 15:42] VITALS: BP 113/65; PULSE 96; TEMP 98.5
== END 2022-01-01 17:15 | disposition home or self-care (01) | DRG 806 ==
LOC: 4FBP 05:52
PROVIDERS: ADMIT Obstetrics & Gynecology Obstetrics; ATTEND Obstetrics & Gynecology Obstetrics
PROC: 10E0XZZ Delivery of Products of Conception, External Approach (ICD-10-PCS; principal; 2021-12-31)
PROC: 0HQ9XZZ Repair Perineum Skin, External Approach (ICD-10-PCS; 2021-12-31)
PROC: 10907ZC Drainage of Amniotic Fluid, Therapeutic from Products of Conception, Via Natural or Artificial Opening (ICD-10-PCS; 2021-12-31)
PROC: 4A0HXCZ Measurement of Products of Conception, Cardiac Rate, External Approach (ICD-10-PCS; 2021-12-31)
PROC: 3E033VJ Introduction of Other Hormone into Peripheral Vein, Percutaneous Approach (ICD-10-PCS; 2021-12-31)
DX: O99.824 Streptococcus B carrier state complicating childbirth (principal); O98.52 Other viral diseases complicating childbirth; Z37.0 Single live birth; O69.81X0 Labor and delivery complicated by cord around neck, without compression, not applicable or unspecified; O22.43 Hemorrhoids in pregnancy, third trimester; F17.210 Nicotine dependence, cigarettes, uncomplicated; O99.284 Endocrine, nutritional and metabolic diseases complicating childbirth; E28.2 Polycystic ovarian syndrome; O70.0 First degree perineal laceration during delivery; O99.334 Smoking (tobacco) complicating childbirth; Z3A.39 39 weeks gestation of pregnancy; Z80.49 Family history of malignant neoplasm of other genital organs; Z86.16 Personal history of COVID-19; Z86.19 Personal history of other infectious and parasitic diseases; Z88.1 Allergy status to other antibiotic agents; Z88.0 Allergy status to penicillin; Z87.19 Personal history of other diseases of the digestive system
CPT/HCPCS: 85025; 86850; 86900; 86901

== ENCOUNTER 2022-01-02 17:22 | Emergency (ER) | payer BC, OTHER ==
[2022-01-02 17:27] VITALS: BP 135/84; TEMP 97.9
[2022-01-02] MEDS ORDERED: LIDOCAINE 1% INJ 10MG/ML (20 ML MDV) SQ ONE (19:40)
--- NOTE | 2022-01-02 20:52 | ED ---
General Adult HPI - General Chief complaint: Skin/Abscess/Foreign Body Stated complaint: hemorrhoid Time Seen by Provider: 01/02/22 18:52 Source: patient Mode of arrival: ambulatory - History of Present Illness Initial comments: This 32-year-old female presents emergency department with hemorrhoid 2 days. Patient states she gave to her son on [id number] and states she has had a thrombosed hemorrhoid since delivering her child. Patient states she has had 3 hemorrhoids present external for the last few months, however after giving to her child 2 days ago the one became thrombosed and very painful. Patient states she experienced the same thing after her last where she presented here and had it lanced. Patient states she has been trying sitz bath and using hemorrhoid cream since her delivery but states it does not help with the pain. Patient states she does have an appointment with us surgeon in [place] to have the hemorrhoids removed on January 16. Patient is requesting to have hemorrhoid lanced and drained. She denies any bleeding coming from her hemorrhoids at this time. She states they're just painful. Patient states she is still experiencing some mild vaginal bleeding since her delivery 2 days ago. Patient denies any other symptoms such as chest pain, abdominal pain, shortness of breath, nausea, vomiting, change in bowel or bladder, change in appetite, headache, lightheadedness, dizziness. - Related Data Home Medications Medication Instructions Recorded Confirmed Pnv No.95/Ferrous Fum/Folic AC 1 tab PO DAILY 04/09/18 01/02/22 [ Multivitamin Tablet] valACYclovir HCL [Valtrex] 500 mg PO DAILY 07/19/18 01/02/22 Hydrocortisone Pr Cream 1 applic RECTAL DAILY PRN 01/02/22 01/02/22 [Proctosol-Hc 2.5%] Previous Rx's Medication Instructions Recorded Dibucaine [Nupercainal] 1 applicate RECTAL TID PRN #28.4 gm 12/04/21 Hydrocortisone Suppository 25 mg RECTAL BID #6 suppositor 01/02/22 [Anusol-Hc] Allergies Allergy/AdvReac Type Severity Reaction Status Date / Time amoxicillin Allergy Anaphylaxis Verified 01/02/22 19:16 Penicillins Allergy Anaphylaxis Verified 01/02/22 19:16 Review of Systems ROS Statement: Those systems with pertinent positive or pertinent negative responses have been documented in the HPI. ROS Other: All systems not noted in ROS Statement are negative. 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, PCOS History of Any Multi-Drug Resistant Organisms: None Reported Additional Past Surgical History / Comment(s): labiaplasty 2018, feet surgery 2014, hemorhoid surgery 03/2020 Past Anesthesia/Blood Transfusion Reactions: No Reported Reaction Past Psychological History: No Psychological Hx Reported Smoking Status: Current every day smoker Past Alcohol Use History: None Reported Past Drug Use History: Marijuana - Past Family History Mother Additional Family Medical History / Comment(s): cervical cancer General Exam General appearance: alert, in no apparent distress Head exam: Present: atraumatic, normocephalic, normal inspection Eye exam: Present: normal appearance, PERRL, EOMI. Absent: scleral icterus, conjunctival injection, periorbital swelling ENT exam: Present: normal exam, mucous membranes moist Neck exam: Present: normal inspection, full ROM. Absent: tenderness, meningismus, lymphadenopathy Respiratory exam: Present: normal lung sounds bilaterally. Absent: respiratory distress, wheezes, rales, rhonchi, stridor Cardiovascular Exam: Present: regular rate, normal rhythm, normal heart sounds. Absent: systolic murmur, diastolic murmur, rubs, gallop, clicks GI/Abdominal exam: Present: soft, normal bowel sounds. Absent: distended, tenderness, guarding, rebound, rigid Rectal exam: Present: hemorrhoids (Patient with 3 hemorrhoids, one thrombosed hemorrhoid about the size of a quarter.: Color and tender to palpation. No internal hemorrhoids present) Extremities exam: Present: normal inspection, full ROM, normal capillary refill. Absent: tenderness, pedal edema, joint swelling, calf tenderness Back exam: Present: full ROM, CVA tenderness (R), CVA tenderness (L). Absent: paraspinal tenderness, vertebral tenderness Neurological exam: Present: alert, oriented X3, CN II-XII intact Psychiatric exam: Present: normal affect, normal mood Skin exam: Present: warm, dry, intact, normal color. Absent: rash Course Vital Signs 01/02/22 17:23 Temperature 97.9 F Pulse Rate 99 Respiratory 18 Rate Blood Pressure 135/84 O2 Sat by Pulse 96 Oximetry Procedures - Incision & Drainage Consent Obtained: verbal consent Site: other (Hemorrhoid) Anesthetic Used: lidocaine 1% I&D Cleaning Method: Alcohol Wipe Sterile Field Used?: Yes Scalpel Used: #11 I&D Drainage Obtained: Blood (Clot) Culture Obtained?: No Patient Tolerated Procedure: well, no complications Medical Decision Making - Medical Decision Making This 31-year-old female presents emergency department with a painful thrombosed hemorrhoid since 12/31/21. I did use lidocaine to numb and kinza hemorrhoid. 2 small clots were evacuated from incision. Minimal bleeding present after incision. Patient immediately felt symptom relief. Patient sent home with Anusol suppositories and instructed to take sitz bath's. Patient instructed to follow up at her surgical appointment and [place] on January 16. Strict return precautions were discussed. Patient verbally agreed to plan. Patient sent home in stable condition. Case discussed in detail with my attending, Dr. Doe. Disposition Clinical Impression: Hemorrhoids, Disposition: HOME SELF-CARE Condition: Stable Instructions (If sedation given, give patient instructions): Hemorrhoids (ED), Thrombosed Hemorrhoid (ED) Additional Instructions: Please follow-up with your primary care provider next 1-2 days. Follow-up with surgeon at your appointment in [place] on January 16. Return to the emergency department with any new, worsening, or concerning symptoms. Continue taking sitz baths. Prescriptions: Hydrocortisone Suppository [Anusol-Hc] 25 mg RECTAL BID #6 suppositor Is patient prescribed a controlled substance at d/c from ED?: No Referrals: None,Stated [Primary Care Provider] - 1-2 days Agustin Siu [STAFF PHYSICIAN] - 1-2 days Time of Disposition: 20:42
[2022-01-02 21:26] VITALS: PULSE 72; RESP 16
== END 2022-01-02 21:27 | disposition home or self-care (01) ==
LOC: EC 17:22
DX: O87.2 Hemorrhoids in the puerperium (principal); O99.335 Smoking (tobacco) complicating the puerperium; F17.200 Nicotine dependence, unspecified, uncomplicated; O99.325 Drug use complicating the puerperium; F12.90 Cannabis use, unspecified, uncomplicated
CPT/HCPCS: 46083; 99283